=== PATIENT | male | born 1960 | race Caucasian/White ===

== ENCOUNTER → 2019-03-23 | Outpatient (CLI) | payer BC ==
--- NOTE | 2019-03-24 14:29 | US ---
EXAM DESCRIPTION: Renal: Ultrasound. CLINICAL HISTORY: 59 years Male CHRONIC KIDNEY DISEASE COMPARISON: None TECHNIQUE: Transcutaneous scanning: Two-dimensional and Doppler modes. FINDINGS: Right kidney measures 9.7 x 5.8 x 4.6 cm; mid-renal cortical thickness normal . Increased echogenicity but less echogenic than the liver. No hydronephrosis No echogenic stones. Minimally lobulated contour of the kidney with no perinephric fluid. Normal vascularity. Proximal ureter not visualized. Left kidney measures 11.6 x 5.9 x 5.3 cm; mid-renal cortical thickness normal.. Increased cortical echogenicity but less echogenic than the liver. No hydronephrosis. No echogenic stones. Minimally lobulated contour of the kidney with no perinephric fluid. Normal vascularity.. Proximal ureter not visualized. Urinary bladder was visualized. Volume not measured Ureteral jet in the bladder left only. Abdominal aorta: not measured. IMPRESSION: 1. Bilateral kidneys with normal cortical thickness, increased echogenicity but less echogenic than the liver. Right kidney is smaller. Bilateral capsule minimally lobulated. No hydronephrosis, no echogenic stones, and no perirenal fluid. 2. Urinary bladder visualized. Volume not measured. Doppler detected left ureteral jet in the bladder. Electronically signed by: Kaleb Taylor MD 03/24/2019 2:27 PM CDT
== END ==
LOC: US 12:15
PROVIDERS: ATTEND Internal Medicine Nephrology
DX: N18.4 Chronic kidney disease, stage 4 (severe) (principal)

== ENCOUNTER → 2020-05-16 | Outpatient (CLI) | payer BC | LOC: LAB.O 09:43 | PROVIDERS: ATTEND Internal Medicine | DX: I12.9 Hypertensive chronic kidney disease with stage 1 through stage 4 chronic kidney disease, or unspecified chronic kidney disease (principal); N18.3 Chronic kidney disease, stage 3 (moderate) ==

== ENCOUNTER → 2020-08-07 | Outpatient (CLI) | payer BC | LOC: LAB.O 08:07 | PROVIDERS: ATTEND Internal Medicine | DX: E78.00 Pure hypercholesterolemia, unspecified (principal) ==